=== PATIENT | male | born 1975 | race Caucasian/White ===

== ENCOUNTER 2017-01-28 07:00 | Inpatient (IN) | payer OTHER ==
[~2017-01-28] VITALS: Ht 177.8 cm; Wt 68.0 kg
--- NOTE | ~2017-01-28 | DS ---
Unit #: [id number] #: [id number] Patient: SOLIS ROGER [id number] [facility] [address] [place] [address] [id number] MR#: [id number] NAME: SOLIS ROGER ROOM: [facility] Age: 42 Sex: M Admission Date: 01/28/2017 : 1975 Discharge Date: 01/30/2017 Attending Physician: Ezio Ramirez M.D. Primary Care Physician: Primary Care Physician No DISCHARGE SUMMARY REASON FOR ADMISSION The patient is a 42-year-old single white male admitted for alcohol detox. HOSPITAL COURSE The patient was admitted to the [facility] unit and placed on routine detoxification protocol for alcohol. His detox was a smooth and uneventful one and he was pleasant and cooperative in his interactions with peers and staff and active within the therapeutic milieu. By 01/30 the patient requested discharge and it was ordered. FINAL DIAGNOSES 1. Alcohol use disorder. 2. History of traumatic brain injury. DISPOSITION ON DISCHARGE No psychotropic or other medications were ordered at the time of discharge. Followup to take placed through the auspices of community mental health resources. The patient's prognosis is considered fair. Dictated by... Ezio Ramirez M.D. CB/xochitl TD: 01/31/2017 02:08 JOB #: [id number] DISCHARGE SUMMARY Page 1 of X Ezio Ramirez MD X DISCHARGE SUMMARY
--- NOTE | ~2017-01-28 | A ---
[facility] Nutrition Therapy DATE: 01/29/17 Patient: SOLIS ROGER Physician: MAGALI Address: [address] Room/Bed: [address], Zip: [place] [address] Admit Date: 01/28/17 Date of : [birth year] Height: 5 10 Weight: 149 68.0388 NUTRITIONAL ASSESSMENT: REASON: PT SEEN FOR 1 NUTRITION RISK POINT FOR UNINTENTIONAL WT LOSS. PMH: ETOH ABUSE Anthropometrics: PT IS 42 YO MALE. HT 5'10". WT 150LBS. BMI 21. Labs: NO NEW LABS Meds: DETOX PROTOCOL, MVI, B-COMPLEX Assessment: PT HAS BEEN HOMELESS FOR ONE WEEK. HE REPORTS HE TRIED TO DRINK HIMSELF TO . PT REPORTS HE HAS CONSUMED 1/2 GAL VODKA/DAY FOR PAST 4 YEARS. PER [place], PTS WEIGHT HAS BEEN STABLE X 3 YEARS. PT HAS SI. PT REPORTED POOR APPETITE, BUT HAS HAD GOOD PO INTAKE SINCE ADMIT. PT REPORTED VOMITING, DIARRHEA, AND ABDOMINAL CRAMPS. HE IS ACTIVELY DETOXING. PT IS ON A REGULAR DIET WITH NO CAFFEIENE ALLOWED. PT REPORTED POOR APPETITE WITH AN UNKNOWN AMOUNT OF WEIGHT LOSS AND HE HAS NOT BEEN SLEEPING. Dx: UNINTENTIONAL WEIGHT LOSS R/T CURRENT CONDITION, ALCOHOL USE AEB PT REPORT OF POOR APPETITE AND AN UNKNOWN AMOUNT OF WEIGHT LOSS, NUTRITIONAL RISK POINT. Intervention: REGULAR DIET WITH NO CAFFEIENE, PSYCH, DETOX, MEDS PER MD Monitoring, Evaluation and Goals: 1. PO INTAKE >50% OF MEALS. 2. PREVENT AND CORRECT MACRO AND MICRONUTRIENT DEFICIENCIES. 3. WEIGHT; PREVENT FURTHER WEIGHT LOSS AND MAINTAIN CURRENT WEIGHT. MONITOR: WEIGHT, LABS, PO/ FLUID INTAKES. Recommendations: 1. ENCOURAGE ADEQUATE PO INTAKE. OFFER MEALS AND SNACKS. 2. CONTINUE CURRENT REGULAR DIET WITH NO CAFFEINE. 3. OBTAIN WEIGHTS [address] WILL FOLLOW UP PER PROTOCOL AND PRN RELATED TO MILD NUTRITION RISK. Respectfully, [facility] Nutrition Therapy DATE: 01/29/17 Patient: SOLIS ROGER Physician: MAGALI Address: [address] Room/Bed: [address], Zip: [place] [address] Admit Date: 01/28/17 Date of : [birth year] Height: 5 10 Weight: 149 68.0388 DA ESQUIVEL, MS, RD, LD [facility] cc: client file
--- NOTE | ~2017-01-28 | HP ---
Unit #: [id number] #: [id number] Patient: SOLIS ROGER [id number] [place] [address] [id number] I MR#: [id number] NAME: SOLIS ROGER ROOM: P175 Age: 42 Sex: M Admission Date: 01/28/2017 : 1975 Attending Physician: Ezio Ramirez M.D. Admitting Physician: Ezio Ramirez M.D. Primary Care Physician: Primary Care Physician No HISTORY AND PHYSICAL HISTORY OF PRESENT ILLNESS Solis is a 42 year old admitted to [facility] because of his abuse of alcohol. He has had other admissions to this facility for the same. PAST MEDICAL HISTORY Long history of alcohol abuse. PAST SURGICAL HISTORY Nothing reported. ALLERGIES No known drug allergies. SOCIAL HISTORY Smokes one pack per day. Drinks alcohol frequently. Denies illicit drug use. FAMILY HISTORY Medically noncontributory. REVIEW OF SYSTEMS CONSTITUTIONAL: No fever or chills. HEENT: Denies any sore throat, ear pain or runny nose. CARDIOVASCULAR: Denies chest pain, irregular heart rhythm or palpitations. CHEST: Denies shortness of breath or cough. No hemoptysis. GASTROINTESTINAL: Denies nausea, vomiting, diarrhea or chronic constipation. ENDOCRINE: Denies history of increased thirst or urination. No recent significant weight loss or gain. GENITOURINARY: Denies dysuria, frequency, or hematuria. SKIN: Denies any rashes. HEMATOLOGIC: Denies history of increased bleeding or bruising. MUSCULOSKELETAL: Denies any hot, swollen joints. No generalized muscle pain. NEUROLOGIC: Denies problems with vision or speech. No frequent, severe headaches. No numbness, tingling or weakness in any extremities. Denies loss of bladder or bowel control. CURRENT MEDICATIONS Detox protocol. PHYSICAL EXAMINATION Unit #: [id number] #: [id number] Patient: SOLIS ROGER GENERAL: Alert, well-nourished, in no apparent distress. VITAL SIGNS: Blood pressure 110/80, heart rate 80, respirations 16, temperature 98.6. WEIGHT: 150. HEIGHT: 5 foot 10 inches. SKIN: Warm and dry without rash or lesion. HEENT: Normocephalic. TMs not viewed. Oral and nasal passages clear. Conjunctivae clear. Pupils equal, round and reactive to light and accommodation. Extraocular movements intact. NECK: Supple without lymphadenopathy or thyromegaly. HEART: Regular rate and rhythm without murmur. LUNGS: Clear. ABDOMEN: Soft, nontender. : Not done. EXTREMITIES: No evidence of cyanosis, clubbing or edema. Moves all extremities without focal deficit. NEUROLOGICAL: Grossly within normal limits. Cranial Nerves: II: Visual chowdary are intact. III, IV AND : Extraocular movements are intact. Pupils are equal, round and reactive to light. V: Facial sensation is grossly normal. VII: Facial movements and expression are normal. VIII: Auditory acuity grossly intact. IX, X: Uvula is midline. Phonation is normal. XI: Patient shrugs shoulders and turns head normally. XII: Tongue protrudes in the midline. Sensory and Motor Function: Sensory and motor sensation is grossly normal. Motor: moves all extremities well. Coordination: Gait is normal. Deep Tendon Reflexes: Intact. IMPRESSION Psychiatric admission. RECOMMENDATIONS PSYCHIATRIC: Per psychiatrist. MEDICAL: I see no contraindications to participating in facility's activities. MEDICAL PROGNOSIS Good. MEDICAL CONDITION Stable. Dictated by... Pricila Dbuose P.A.-C. for Stephania Andersen/xochitl TD: 01/28/2017 21:05 JOB #: [id number] Unit #: [id number] #: [id number] Patient: SOLIS ROGER HISTORY AND PHYSICAL Page 1 of 1 X Pricila Dubose HISTORY AND PHYSICAL
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
--- NOTE | ~2017-01-28 | PN ---
Unit #: [id number] #: [id number] Patient: SOLIS ROGER [id number] [facility] [address] [place] [address] [id number] I MR#: [id number] NAME: SOLIS ROGER ROOM: [facility] Age: 42 Sex: M Admission Date: 01/28/2017 : 1975 Attending Physician: Ezio Ramirez M.D. Admitting Physician: Ezio Ramirez M.D. Primary Care Physician: Primary Care Physician Ana Maria DOWNEY PROGRESS NOTES DATE 01/29/2017 DISCUSSION The patient is active within the therapeutic milieu and seems to exhibit little in the way of signs or symptoms of withdrawal. He states that he plans to move for [place] in the near future, and we will seek psychiatric and chemical dependence followup once there. Otherwise, the patient offers no new complaints today, and we expect discharge by Friday. Dictated by... Ezio Ramirez M.D. CB/alejandra TD: 01/29/2017 14:33 JOB #: [id number] JOSÉ MIGUEL PROGRESS NOTES Page 1 of 1 X Ezio Ramirez MD PROGRESS NOTE
== END 2017-01-30 18:00 | disposition home or self-care (01) | DRG 897 ==
LOC: P1E 09:52
PROC: HZ2ZZZZ Detoxification Services for Substance Abuse Treatment (ICD-10-PCS; principal; 2017-01-28)
DX: F10.10 Alcohol abuse, uncomplicated (principal); F34.1 Dysthymic disorder; Z87.820 Personal history of traumatic brain injury; F17.200 Nicotine dependence, unspecified, uncomplicated

== ENCOUNTER 2017-02-07 05:00 | Inpatient (IN) | payer OTHER ==
[~2017-02-07] VITALS: Ht 177.8 cm; Wt 69.9 kg
--- NOTE | ~2017-02-07 | DS ---
Unit #: [id number] #: [id number] Patient: SOLIS ROGER [id number] [facility] [address] [place] [address] [id number] I MR#: [id number] NAME: SOLIS ROGER ROOM: [facility] Age: 42 Sex: M Admission Date: 02/07/2017 : 1975 Discharge Date: 02/10/2017 Attending Physician: Ezio Ramirez M.D. Primary Care Physician: Generic Doctor Not In System DISCHARGE SUMMARY REASON FOR ADMISSION The patient is a 42-year-old white male, admitted for alcohol detox. HOSPITAL COURSE The patient was admitted to the [facility] unit and placed on routine detoxification protocol for alcohol. His stay in the hospital was a brief and uneventful one and he did participate actively within therapeutic milieu. By 02/10/2017, he was requesting discharge and it was so ordered. FINAL DIAGNOSIS Alcohol use disorder. DISPOSITION ON DISCHARGE The patient is discharged on no psychotropic or other medications. FOLLOWUP Followup will take place through the auspices of community mental health resources. PROGNOSIS The patient's prognosis is considered fair. Dictated by... Ezio Ramirez M.D. SHANDA/muriel TD: 02/10/2017 23:38 JOB #: [id number] DISCHARGE SUMMARY Page 1 of 1 X Ezio Ramirez MD X DISCHARGE SUMMARY
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
--- NOTE | ~2017-02-07 | PN ---
Unit #: [id number] #: [id number] Patient: SOLIS ROGER [id number] [facility] [address] [place] [address] [id number] I MR#: [id number] NAME: SOLIS ROGER ROOM: [facility]184 Age: 42 Sex: M Admission Date: 02/07/2017 : 1975 Attending Physician: Ezio Ramirez M.D. Admitting Physician: Ezio Ramirez M.D. Primary Care Physician: Generic Doctor Not In System [facility] PROGRESS NOTES DATE 02/09/2017 DISCUSSION The patient reports that he is having less in the way of withdrawal symptoms and is feeling less shaky. He is now expressing interest in moving to [place], [place] upon discharge from the hospital which would take place as early as tomorrow. Dictated by... Ezio Ramirez M.D. CB/xochitl TD: 02/10/2017 00:11 JOB #: [id number] [facility] PROGRESS NOTES Page 1 of 1 X Ezio Ramirez MD X PROGRESS NOTE
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
--- NOTE | ~2017-02-07 | PN ---
Unit #: [id number] #: [id number] Patient: SOLIS ROGER [id number] [facility] [address] [place] [address] [id number] MR#: [id number] NAME: SOLIS ROGER ROOM: [facility] Age: 42 Sex: M Admission Date: 02/07/2017 : 1975 Attending Physician: Ezio Ramirez M.D. Admitting Physician: Ezio Ramirez M.D. Primary Care Physician: Generic Doctor Not In System [facility] PROGRESS NOTES DATE 02/08/2017 DISCUSSION The patient is active within the therapeutic milieu but continues to complain of significant symptoms of alcohol withdrawal. He is notably tremulous during today's interview. We continue current treatment. Dictated by... Ezio Ramirez M.D. SHANDA/mini TD: 02/08/2017 14:18 JOB #: [id number] [facility] PROGRESS NOTES Page 1 of 1 X Ezio Ramirez MD X PROGRESS NOTE
[2017-02-08 13:16] LABS: BASOPHIL% 0.9 % (0-2.5); EOSINOPHIL# 0.1 X10e3 (0-0.7); EOSINOPHIL% 2.4 % (0.0-7.0); HEMATOCRIT 41.2 % (38.0-50.0); HEMOGLOBIN 13.8 gm/dL (13.0-16.0); LYMPHOCYTE# 1.3 X10e3 (1.0-3.5); LYMPHOCYTE% 26.3 % (17.0-45.0); MEAN CELL VOLUME 103.1 FL (83-96); MEAN CORPUSCULAR HEMOGLOBIN 34.5 PG (28-34); MEAN CORPUSCULAR HGB CONC 33.5 g/dL (30-36); MEAN PLATELET VOLUME 8.1 FL (6.5-11.5); MONOCYTE# 0.6 X10e3 (0-1.0); NEUTROPHIL# 2.8 X10e3 (1.5-7.1); NEUTROPHIL% 57.4 % (40-75); PLATELET COUNT 237 X10e3 (140-420); RED CELL DISTRIBUTION WIDTH 14.3 % (11.0-15.5); WHITE BLOOD COUNT 4.9 X10e3 (4.0-10.5)
[2017-02-08 13:34] LABS: BILIRUBIN,TOTAL 0.8 mg/dL (0.2-2.0); BUN/CREATININE RATIO 13.75; CALCIUM SERUM 9.2 mg/dL (8.4-10.2); CREATININE SERUM 0.8 mg/dL (0.6-1.4); GLOM FILT RATE Estimated 108.7 mL/min (>60); POTASSIUM 4.5 mmol/L (3.5-5.1); PROTEIN TOTAL SERUM 6.5 g/dL (6.0-8.3)
[2017-02-08 14:15] LABS: DIFF IND NO
[2017-02-10 12:41] LABS: URINE APPEARANCE CLEAR; URINE BILIRUBIN NEG (NEG); URINE BLOOD NEG (NEG); URINE COLOR DK YELLOW; URINE GLUCOSE NEG (NEG); URINE KETONE NEG (NEG); URINE LEUKOCYTE ESTERASE NEG (NEG); URINE NITRATE NEG (NEG); URINE PH 6.5 (5-8); URINE PROTEIN NEG (NEG); URINE SPECIFIC GRAVITY 1.017 (1.003-1.035); URINE UROBILINOGEN 0.2 MG/DL (NEG)
[2017-02-10 13:51] LABS: AMPHETAMINE NEG (NEG); BARBITURATES NEG (NEG); BENZODIAZEPINES POS (NEG); COCAINE NEG (NEG); MARIJUANA NEG (NEG); OPIATES NEG (NEG); TRICYCLIC ANTIDEPRESSANTS NEG (NEG); U METHADONE NEG (NEG)
== END 2017-02-10 16:45 | disposition home or self-care (01) | DRG 897 ==
LOC: P1E 08:28
PROVIDERS: Specialist
PROC: HZ2ZZZZ Detoxification Services for Substance Abuse Treatment (ICD-10-PCS; principal; 2017-02-06)
DX: F10.239 Alcohol dependence with withdrawal, unspecified (principal)
CPT/HCPCS: 80053; 80307; 81003; 85025; 86592